=== PATIENT | female | born 1945 | race Caucasian/White ===

== ENCOUNTER 2017-02-16 09:24 | Outpatient (CLI) | payer MEDICARE ==
[2017-02-16 19:34] LABS: ALT (SGPT) 9 U/L (0-55); AST (SGOT) 14 U/L (5-34); Albumin 2.9 g/dL (3.4-4.8); Alkaline Phosphatase 173 U/L (40-150); Anion Gap 18 mmol/L (10-20); BUN (Urea Nitrogen) 13 mg/dL (9.8-20.1); Bilirubin, Total 0.2 mg/dL (0.2-1.2); Calc. Creatinine Clearance 0 mL/min (70-130); Calcium 9.8 mg/dL (7.8-10.44); Carbon Dioxide 30 mmol/L (23-31); Cardiac Risk 2.4 (Less than 4.5); Chloride 92 mmol/L (98-107); Cholesterol 143 mg/dL (< 200 Desired); Estimated GFR-MDRD 79; Globulin 4.2 g/dL (2.4-3.5); Glucose 189 mg/dL (80-115); HDL Cholesterol 59 mg/dL (>60 Neg Risk); LDL Cholesterol, Calculated 65 mg/dL; Potassium 4.6 mmol/L (3.5-5.1); Protein, Total 7.1 g/dL (5.8-8.1); Sodium 135 mmol/L (136-145); Triglycerides 93 mg/dL (Less than 150)
[2017-02-16 20:52] LABS: #Basophils 0.1 thou/uL (0.0-0.2); #Lymphocytes 0.8 thou/uL (1.20-3.40); #Monocytes 0.2 thou/uL (0.11-0.59); #Neutrophils 11.1 thou/uL (1.40-6.50); %Basophils 0.6 % (0.0-1.0); %Eosinophils 0.1 % (0.0-10.0); %Lymphocytes 6.9 % (21.0-51.0); %Monocytes 1.8 % (0.0-10.0); %Neutrophils 90.7 % (42.0-75.0); Hemoglobin 11.9 g/dL (12.0-16.0); Hypochromia SLIGHT = 6-15 cells (100X) (0-5/hpf); MDiff Complete? YES; Mean Corpuscular Hemoglobin 24.9 pg (27.0-31.0); Mean Platelet Volume 5.6 fL (7.4-10.4); PLT Morphology Comment Appears Increased; Platelet Count 828 thou/uL (130-400); Poikilocytosis SLIGHT = 6-15 cells (100X) (0-5/hpf); RBC Distribution Width 17.6 % (11.5-14.5); White Blood Cell (WBC) Count 12.3 thou/uL (4.8-10.8)
[2017-02-18 13:50] LABS: Hemoglobin A1c 4.6 % (4.0-6.0)
== END 2017-02-16 09:25 | disposition home or self-care (01) ==
LOC: LABLEX 09:24
PROVIDERS: ATTEND Family Medicine
DX: N83.9 Noninflammatory disorder of ovary, fallopian tube and broad ligament, unspecified (principal); R10.30 Lower abdominal pain, unspecified; B37.0 Candidal stomatitis; R53.81 Other malaise; L89.150 Pressure ulcer of sacral region, unstageable
CPT/HCPCS: 80053; 80061; 83036; 84443; 85025

== ENCOUNTER 2017-02-17 14:51 | Outpatient (CLI) | payer MEDICARE | END 2017-02-17 14:52 | disposition home or self-care (01) | LOC: LABLEX 14:51 | PROVIDERS: ATTEND Family Medicine | DX: R82.90 Unspecified abnormal findings in urine (principal) | CPT/HCPCS: 87086 ==

== ENCOUNTER 2017-02-25 14:40 | Inpatient (IN) | payer MEDICARE ==
[2017-02-25 15:34] LABS: #Basophils 0.1 thou/uL (0.0-0.2); #Eosinphils 0.1 thou/uL (0.0-0.7); #Monocytes 0.9 thou/uL (0.11-0.59); #Neutrophils 15.9 thou/uL (1.40-6.50); %Basophils 0.7 % (0.0-1.0); %Eosinophils 0.4 % (0.0-10.0); %Lymphocytes 10.4 % (21.0-51.0); %Monocytes 4.6 % (0.0-10.0); Anisocytosis SLIGHT = 6-15 cells (100X) (0-5/hpf); Band 1 % (5-11); Elliptocytes SLIGHT = 2-5 cells (100X) (0-1/hpf); Hemoglobin 12.2 g/dL (12.0-16.0); Hypochromia SLIGHT = 6-15 cells (100X) (0-5/hpf); Lymphocytes 15 % (21-51); MDiff Complete? YES; Mean Corpuscular HGB CONC 30.4 g/dL (32.0-36.0); Mean Corpuscular Hemoglobin 24.3 pg (27.0-31.0); Mean Platelet Volume 5.9 fL (7.4-10.4); Microcytosis SLIGHT = 6-15 cells (100X) (0-5/hpf); Monocytes 2 % (0-10); Neutrophil 82 % (42-75); PLT Morphology Comment PLATELETS INCREASED ON SLIDE; Platelet Count 766 thou/uL (130-400); Poikilocytosis SLIGHT = 6-15 cells (100X) (0-5/hpf); RBC Distribution Width 17.3 % (11.5-14.5); Red Blood Cell (RBC) Count 4.99 mill/uL (4.20-5.40); Stomatocytes SLIGHT = 2-5 cells (100X) (0-1/hpf); Target Cells SLIGHT = 2-5 cells (100X) (0-1/hpf); Tear Drops SLIGHT = 2-5 cells (100X) (0-1/hpf)
[2017-02-25 15:35] LABS: CKMB 1.6 ng/mL (0-6.6); Troponin I Less than 0.010 ng/mL (< 0.028)
[2017-02-25 15:39] LABS: ALT (SGPT) 6 U/L (0-55); AST (SGOT) 17 U/L (5-34); Albumin 2.8 g/dL (3.4-4.8); Alkaline Phosphatase 194 U/L (40-150); Anion Gap 17 mmol/L (10-20); BUN (Urea Nitrogen) 12 mg/dL (9.8-20.1); Bilirubin, Total 0.3 mg/dL (0.2-1.2); CK (CPK) 16 U/L (29-168); Calc. Creatinine Clearance 0 mL/min (70-130); Carbon Dioxide 31 mmol/L (23-31); Chloride 90 mmol/L (98-107); Estimated GFR-MDRD Greater than 90; Globulin 4.6 g/dL (2.4-3.5); Glucose 119 mg/dL (80-115); Lipase 34 U/L (8-78); Protein, Total 7.4 g/dL (5.8-8.1); Sodium 135 mmol/L (136-145)
[2017-02-25 15:42] LABS: Potassium 2.9 mmol/L (3.5-5.1)
[2017-02-25] MEDS ORDERED: Potassium Chloride 20 MEQ/100 ML PREMIX BAG ONE (15:52)
[2017-02-25 16:29] LABS: Blood, Urine Small (Negative); Glucose, Urine (Dipstick) Negative (Negative); Leukocyte Trace (Negative); Nitrite Negative (Negative); Protein, Urine (Dipstick) Negative (Neg-Trace); Urobilinogen 0.2 mg/dL (0.2-1.0)
[2017-02-25 16:31] LABS: Bilirubin Negative (Negative)
[2017-02-25 16:32] LABS: Bacteria/HPF Rare-Few HPF (None Seen); Clarity Hazy (Clear); Crystals/HPF 2+ AMORPH PHOS HPF (Negative); Other Microscopic Description C&S SET UP
[2017-02-25] MEDS: Potassium Chloride 20 MEQ in Premix Bag 1 BAG IVPB SCH ×2 (17:40→20:56)
[2017-02-25] MEDS ORDERED: Sodium Chloride 0.9% 1,000 ML IV SCH (19:30)
[2017-02-25] MEDS ORDERED: HYDROcodone/Acetaminophen 10/325 mg Tablet PO PRN (20:07)
[2017-02-25] MEDS ORDERED: Bisacodyl 10 MG SUPP PR PRN ×2 (20:07→20:10)
[2017-02-25] MEDS ORDERED: Milk Of Magnesia 30 ML UDCUP PO PRN (20:07)
[2017-02-25] MEDS ORDERED: Acetaminophen 325 MG TAB PO PRN (20:07)
[2017-02-25] MEDS ORDERED: Ventolin HFA Inhaler 60 PUFF INHALER INH PRN (20:10)
[2017-02-25] MEDS ORDERED: traMADol HCl 50 MG TAB PO PRN (20:10)
--- NOTE | 2017-02-25 20:15 | CT ---
CT OF THE ABDOMEN AND PELVIS: 02/25/17 Comparison is made with a 02/19/14 study. Axial slices were acquired after giving IV contrast. Coronal reconstructions were then done. The lung bases are clear. The liver again shows multiple dilated intrahepatic ducts. The common bile duct is dilated all the way down to its termination. The degree of ductal dilatation has not worsen ed since the prior CT dated 02/19/14. Currently, the diameter of the common duct in the pancreatic he ad was about 12 mm which is slightly less than before. There was no evidence of pancreatic mass. The spleen, adrenal glands, and kidneys showed no acute findings. There is some thickening of the left adrenal gland such that I cannot exclude a small mass here, but the appearance is not substantially different than the 2014 scan done at [facility]. The aorta is normal in caliber though has calcification in it. A small hiatal hernia was noted. The bowel shows a large amount of fecal material in the colon with some dilation of the colon, though I do not feel it is frankly obstructed. No inflammatory changes a re seen around the colon. Some nondilated fluid filled loops of small bowel were evident. CT of the pelvis shows a 3.3 cm cystic structure in the right adnexa. This was present before and bland s not changed significantly over time. No solid pelvic masses or fluid collections were appreciated. IMPRESSION: 1. Constipation. 2. Intra and extrahepatic bile duct dilation with no particular change in the appearance since 2013. 3. Hiatal hernia. 4. 3+ cm right ovarian cyst, little different than the prior study. POS: HOME
--- NOTE | 2017-02-25 20:22 | RAD ---
PORTABLE CHEST 02/25/17 An AP portable film at 1610 is compared with a 12/16/10 study. COPD is evident with hyperinflation of the lungs. No focal pulmonary infiltrates were noted. No mass es were seen. The cardiac size is normal. Calcification is seen in the aortic arch. IMPRESSION: No acute thoracic findings. POS: HOME
[2017-02-25] MEDS: HYDROcodone/Acetaminophen 10/325 mg Tablet PO PRN (20:48)
[2017-02-25] MEDS: Nicotine 21 MG PATCH TD SCH (20:53)
[2017-02-25] MEDS: Gabapentin 300 MG CAP PO SCH (20:53)
[2017-02-25] MEDS: Polyethylene Glycol 3350 17 GM Packet PO SCH (20:58)
[2017-02-25] MEDS: Sodium Chloride 0.9% 1,000 ML IV SCH ×2 (21:00→23:40)
[2017-02-25] MEDS: Zolpidem Tartrate 5 MG TAB PO SCH (22:10)
--- NOTE | 2017-02-26 02:37 | HP ---
DATE OF ADMISSION: 02/25/2017 CHIEF COMPLAINT: Abdominal pain with weight loss. HISTORY OF PRESENT ILLNESS: Patient is a 71-year-old white female, who reports a 6-week history of approximately 20-pound weight loss with diffuse abdominal pain, anorexia, and easy satiety. Patient stated she has had similar symptoms for greater than 6 months, reports being admitted twice in the last year for similar symptoms at [facility] in [place] as well as hospital in [place]. Ramon zarco says that she was dehydrated and given IV fluids, but does not know of any other diagnostic te sts that were performed and says that she was sent home and continued to be weak and debilitated ove r the last 6 weeks with her worsening symptoms, she has become so weak. She is having difficulty wa lking. She presented to the emergency room today at the recommendation of her primary care physicia n, Dr. Thrasher because of her worsening symptoms and inability to ambulate secondary to her weaknes s. She denies any hematochezia, no melena. She denies any emesis, but does have easy in early sati ety and is having trouble eating for significant oral intake. She does have a history of esophageal stricture. 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 She said at that time, there was no significant pathology found other than her esophageal stricture. Patient reports the last couple of days, she states that she feels weak and dizzy, but has had no syncope, no near syncopal spells. She has had no chest pain or shortness of breath. Patient is a c hronic smoker. PAST MEDICAL HISTORY: 1. COPD. 2. Chronic back pain, followed by Dr. Villalta on chronic narcotics. 3. History of bipolar disorder. 4. History of anemia with an upper GI ulcer requiring blood transfusion several years ago. 5. Psoriasis. 6. Ventral hernias, multiple. 7. Fibromyalgia. 8. Chronic back pain as above. 9. Peripheral neuropathy. 10. History of pneumonia in 2010 and a sternal fracture in 2010. 11. History of insomnia. 12. History of dyslipidemia. PAST SURGICAL HISTORY: Hernia repair, ventral x4, cholecystectomy and a right hip surgery in 2010. CURRENT MEDICATIONS: Patient reports taking trazodone 150 mg p.o. at bedtime, zolpidem 10 mg p.o. a t bedtime, tramadol 50 mg 1-2 tablets p.o. q. 6 hours p.r.n. pain, [place] 10/325 p.o. q. 6 hours p.r. n. pain, gabapentin 600 mg p.o. b.i.d., albuterol inhaler 1-2 puffs q. 4 hours p.r.n. shortness of b reath. ALLERGIES: Patient has allergies to PENICILLIN, NSAIDs, LYRICA, causing tongue swelling, TAPE and A DHESIVES and ENBREL. FAMILY HISTORY: Positive for father at age 75 from an NE. Mother at age 80 from lung cancer and has a sister, who had lung cancer as well. SOCIAL HISTORY: Patient reports a greater than 40-year pack history of smoking. She is retired. D enies any alcohol use and she is . REVIEW OF SYSTEMS: Patient denies any recent visual changes. No sore throat reported. She does re port that GI symptoms as in HPI. She also reports a history of constipation for which she takes lax atives on a p.r.n. basis. No melena, no hematochezia reported. Patient denies any diarrhea. She d oes report early satiety. She denies any increased cough nor shortness of breath worsen baseline. No chest pain or palpitations reported. Patient reports some increased urinary frequency intermitte ntly, but no dysuria. She had a history of hematuria evaluated several years ago with a cystoscopy, which was negative for malignancy. Patient denies any lower extremity swelling. She has chronic p eripheral neuropathy in her feet which is controlled with gabapentin. Patient denies any recent wor sening depression other than the pain that she is having her abdomen, worse after eating. Patient r eports chronic back pain which is at its baseline. PHYSICAL EXAMINATION: GENERAL: Cachectic ill-appearing white female, appears older than stated age, alert and oriented x3 . VITAL SIGNS: Patient's blood pressure was 107/53, temperature 97.2, pulse was 90 beats per minute, respiratory rate was 20, O2 sat was 97% on room air. HEENT: Oropharynx, mucous membranes are slightly dry. No lesions were noted. Extraocular movement s are intact. NECK: Supple, no masses palpated. CHEST: Prolonged expiration without rales or wheezes. HEART: Rapid but regular rate and rhythm. ABDOMEN: Scaphoid. There was some diffuse abdominal tenderness in the upper epigastrium as well as the bilateral upper quadrant areas without rebound or guarding. Bowel sounds were hypoactive, but present in all 4 quadrants. No masses were palpated other than what appeared to be a possible mesh on her upper abdominal area from previous gastric surgery. EXTREMITIES: Showed thin extremities. BACK: Had no significant vertebral tenderness. No CVA tenderness. She had a small stage I areas o f skin breakdown in the lower sacrum area without signs of secondary infection. LABORATORY AND X-RAY FINDINGS: CBC had a white count of 19,000 with a platelet count 766,000, H\T\H of 12.2 and 40.0. Chemistry showed a sodium of 135, potassium of 2.9 and glucose of 119 nonfasting , alkaline phosphatase 194. Cardiac enzymes were normal. TSH was 2.0. Urinalysis showed 4-6 wbc's and 4-6 squamous cells with rare bacteria. Chest x-ray showed chronic emphysematous changes. CT s can reported by the emergency room physician showed no acute findings. ASSESSMENT AND PLAN: 1. Recent weight loss with abdominal pain, anorexia, etiology is unknown at this time. We will try to advance patient's diet includes high calorie shakes, may discuss this case with the patient's ga stroenterologist, Dr. Conner may need to have a repeat upper endoscopy and/or lower endoscopy if neede d. 2. Dehydration. We will rehydrate with IV fluids and oral as patient tolerates. 3. Hypokalemia. This may be diet related. Patient was given potassium supplements to IV. She ref used orals potassium because she said she could not tolerate it. 4. Chronic history of smoking. Patient is at risk for malignancy with her significant weight loss. Chest x-ray did not show any obvious findings that may consider further imaging as needed. She do es have a history of right ovarian cystic lesion. We will order pelvic ultrasound. 5. Deconditioning. Patient will be started physical therapy and occupational therapy. DISPOSITION: Patient's condition is very guarded with significant weight loss, anorexia, unknown ca use of the patient's overall worsening status. Hopefully, she will improve to the point where she c an ambulate again and be discharged to home.
[2017-02-26] MEDS: HYDROcodone/Acetaminophen 10/325 mg Tablet PO PRN ×3 (03:49→20:40)
[2017-02-26 06:45] LABS: ALT (SGPT) 6 U/L (0-55); AST (SGOT) 13 U/L (5-34); Albumin 2.4 g/dL (3.4-4.8); Alkaline Phosphatase 158 U/L (40-150); Anion Gap 12 mmol/L (10-20); BUN (Urea Nitrogen) 10 mg/dL (9.8-20.1); Bilirubin, Total 0.1 mg/dL (0.2-1.2); Calc. Creatinine Clearance 0 mL/min (70-130); Calcium 8.3 mg/dL (7.8-10.44); Carbon Dioxide 30 mmol/L (23-31); Chloride 98 mmol/L (98-107); Estimated GFR-MDRD Greater than 90; Globulin 3.8 g/dL (2.4-3.5); Glucose 81 mg/dL (80-115); Potassium 3.3 mmol/L (3.5-5.1); Protein, Total 6.2 g/dL (5.8-8.1); Sodium 137 mmol/L (136-145)
[2017-02-26 06:57] LABS: #Basophils 0.1 thou/uL (0.0-0.2); #Eosinphils 0.1 thou/uL (0.0-0.7); #Monocytes 0.8 thou/uL (0.11-0.59); #Neutrophils 10.2 thou/uL (1.40-6.50); %Basophils 0.6 % (0.0-1.0); %Eosinophils 1.1 % (0.0-10.0); %Lymphocytes 7.8 % (21.0-51.0); %Monocytes 6.2 % (0.0-10.0); %Neutrophils 84.3 % (42.0-75.0); Hemoglobin 10.6 g/dL (12.0-16.0); Mean Corpuscular HGB CONC 31.8 g/dL (32.0-36.0); Mean Corpuscular Hemoglobin 25.3 pg (27.0-31.0); Mean Corpuscular Volume 79.5 fl (81.0-99.0); Mean Platelet Volume 5.8 fL (7.4-10.4); Platelet Count 585 thou/uL (130-400); RBC Distribution Width 17.2 % (11.5-14.5); Red Blood Cell (RBC) Count 4.19 mill/uL (4.20-5.40); White Blood Cell (WBC) Count 12.1 thou/uL (4.8-10.8)
[2017-02-26] MEDS: Polyethylene Glycol 3350 17 GM Packet PO SCH ×2 (08:44→20:41)
[2017-02-26] MEDS: Gabapentin 300 MG CAP PO SCH ×2 (08:45→20:40)
[2017-02-26] MEDS: traMADol HCl 50 MG TAB PO PRN ×2 (08:45→18:09)
[2017-02-26] MEDS ORDERED: Iopamidol 370 76% 100 ML VIAL ONE (09:00)
[2017-02-26 10:01] VITALS: BMI 12.4
[2017-02-26] MEDS: Sodium Chloride 0.9% 1,000 ML IV SCH (11:51)
[2017-02-26 16:52] LABS: Reticulocyte Count 0.8 % (0.5-1.5)
[2017-02-26 16:58] LABS: Iron 10 ug/dL (50-170); Iron Binding Capacity, Total 141 mcg/dL (265-497)
[2017-02-26 17:50] LABS: Folate (Folic Acid) 11.7 ng/mL (7.0-31.4)
[2017-02-26] MEDS: Nicotine 21 MG PATCH TD SCH (20:39)
[2017-02-26] MEDS: Zolpidem Tartrate 5 MG TAB PO SCH (20:40)
--- NOTE | 2017-02-26 20:46 | ULT ---
PELVIC ULTRASOUND: Date: 02/26/17 Ultrasonography of the pelvis was performed for evaluation of a right ovarian mass. This was prompte d by a recent CT showing a cystic area in the right ovary. There was a CT prior to this that also sh owed the finding. It appeared to have changed little in size over time. FINDINGS: The uterus is atrophic and seen poorly. It measures 5.1 x 2.8 x 3.9 cm. The endometrium was not defi nable, but is certainly not thick. The right ovary is 4.3 cm long and contains a cyst within it that measures 2.3 x 3.6 x 2.[address] as I can tell, it seems purely cystic. The left ovary appeared normal and was 2.0 cm long. No veronica e fluid was seen in the cul-de-sac. There appears to be some debris within the urinary bladder. The significance of the finding is unkno wn. IMPRESSION: 1. 3.6 cm right ovarian cyst with no obvious solid tissue components or septa. 2. Several echoes of debris seen in the urinary bladder of uncertain significance. A urinalysis sadi ht be useful to check. CODE T. POS: HOME
[2017-02-27] MEDS: Sodium Chloride 0.9% 1,000 ML IV SCH ×2 (01:40→15:25)
[2017-02-27] MEDS: traMADol HCl 50 MG TAB PO PRN ×2 (07:22→17:01)
[2017-02-27] MEDS: Polyethylene Glycol 3350 17 GM Packet PO SCH ×3 (08:30→20:03)
[2017-02-27] MEDS: Gabapentin 300 MG CAP PO SCH ×2 (08:49→20:00)
[2017-02-27] MEDS: HYDROcodone/Acetaminophen 10/325 mg Tablet PO PRN ×2 (10:57→19:57)
[2017-02-27] MEDS: Nicotine 21 MG PATCH TD SCH (20:00)
[2017-02-27] MEDS: Zolpidem Tartrate 5 MG TAB PO SCH (21:49)
[2017-02-28] MEDS: HYDROcodone/Acetaminophen 10/325 mg Tablet PO PRN ×2 (03:40→09:50)
[2017-02-28] MEDS: Sodium Chloride 0.9% 1,000 ML IV SCH ×2 (04:06→13:12)
[2017-02-28 06:19] LABS: #Basophils 0.1 thou/uL (0.0-0.2); #Eosinphils 0.1 thou/uL (0.0-0.7); #Lymphocytes 1.4 thou/uL (1.20-3.40); #Monocytes 0.6 thou/uL (0.11-0.59); #Neutrophils 9.3 thou/uL (1.40-6.50); %Basophils 0.7 % (0.0-1.0); %Eosinophils 0.8 % (0.0-10.0); %Lymphocytes 12.2 % (21.0-51.0); %Monocytes 5.1 % (0.0-10.0); %Neutrophils 81.3 % (42.0-75.0); Anisocytosis SLIGHT = 6-15 cells (100X) (0-5/hpf); Elliptocytes SLIGHT = 2-5 cells (100X) (0-1/hpf); Hemoglobin 9.7 g/dL (12.0-16.0); Hypochromia SLIGHT = 6-15 cells (100X) (0-5/hpf); MDiff Complete? YES; Mean Corpuscular HGB CONC 31.2 g/dL (32.0-36.0); Mean Corpuscular Hemoglobin 24.7 pg (27.0-31.0); Mean Platelet Volume 5.7 fL (7.4-10.4); Microcytosis SLIGHT = 6-15 cells (100X) (0-5/hpf); Platelet Count 451 thou/uL (130-400); Poikilocytosis SLIGHT = 6-15 cells (100X) (0-5/hpf); RBC Distribution Width 17.1 % (11.5-14.5); Red Blood Cell (RBC) Count 3.91 mill/uL (4.20-5.40); Stomatocytes SLIGHT = 2-5 cells (100X) (0-1/hpf); Tear Drops SLIGHT = 2-5 cells (100X) (0-1/hpf); White Blood Cell (WBC) Count 11.4 thou/uL (4.8-10.8)
[2017-02-28 06:26] VITALS: BP 105/52; TEMP 98.2
[2017-02-28 06:26] LABS: ALT (SGPT) 6 U/L (0-55); AST (SGOT) 13 U/L (5-34); Albumin 2.1 g/dL (3.4-4.8); Alkaline Phosphatase 134 U/L (40-150); Anion Gap 9 mmol/L (10-20); BUN (Urea Nitrogen) 7 mg/dL (9.8-20.1); Bilirubin, Total 0.1 mg/dL (0.2-1.2); Calc. Creatinine Clearance 62 mL/min (70-130); Calcium 7.3 mg/dL (7.8-10.44); Carbon Dioxide 29 mmol/L (23-31); Chloride 101 mmol/L (98-107); Estimated GFR-MDRD Greater than 90; Globulin 3.2 g/dL (2.4-3.5); Glucose 92 mg/dL (80-115); Protein, Total 5.3 g/dL (5.8-8.1); Sodium 136 mmol/L (136-145)
[2017-02-28 06:29] LABS: Potassium 2.5 mmol/L (3.5-5.1)
[2017-02-28] MEDS ORDERED: ADMIXTURE FEE IVPB SCH (07:00)
[2017-02-28] MEDS ORDERED: POTASSIUM CHLORIDE IVPB SCH (07:00)
[2017-02-28] MEDS ORDERED: Potassium Chloride 20 MEQ TAB PO SCH (07:00)
[2017-02-28] MEDS: Polyethylene Glycol 3350 17 GM Packet PO SCH (08:25)
[2017-02-28] MEDS: Gabapentin 300 MG CAP PO SCH (08:26)
--- NOTE | 2017-03-02 14:32 | PQF ---
LYUBOV DAVID KIA E MD [id number] CLINICAL DOCUMENTATION CLARIFICATION FORM: POST DISCHARGE PLEASE FAX RESPONSE BACK TO [phone] Addendum to original discharge summary date: ____ Late entry note date: __ IF QUERY RECEIVED VIA FAX........ PLEASE DOCUMENT YOUR RESPONSE BELOW FAX RESPONSE BACK TO [phone] Query date: 03/02/17 Values Commonly Used to Grade the Severity of Protein-Energy Malnutrition Measurement Normal Mild Moderate Severe Normal weight (%) 62739 8590 7585 < 77 Body mass index 1924 1818.9 1617.9 < 16 Serum albumin (g/dL) 3.55.0 3.13.4 2.43.0 < 2.4 Serum transferrin (mg/dL) 340180 488447 713529 < 150 Total lymphocyte count (per mm3) [id number] 800 1500 < 800 Delayed hypersensitivity index 2 2 1 0 The following information is documented in the medical record: Weight loss Cachectic BMI 12.5 (<18.5 Mild, <17 Moderate, <16 Severe) Albumin 2.8(g/dL) (</= 3.0 Mild, </= 2.5 Moderate, 2.0 Severe) Anorexia Please document the diagnosis that best represents the patients condition, to the most specific degree known or suspected. _x__ Cachexia ___ Malnutrition , mild ___ Nutritional Risk ___ Malnutrition, moderate ___ Malnutrition, severe, not otherwise specified ___ Other: ___ Condition not applicable ___ No additional documentation or clarification can be provided. Physician/Provider signature/date/time (This form is maintained as a part of the permanent medical record) 2014 [employer], [employer]. All Rights Reserved [email or web address]
== END 2017-02-28 16:36 | disposition home health service (06) | DRG 641 ==
LOC: BURERS 14:40 → BURMED 16:33
PROVIDERS: ADMIT Family Medicine; ATTEND Family Medicine
DX: E87.6 Hypokalemia (principal); E86.0 Dehydration; R64 Cachexia; Z68.1 Body mass index [BMI] 19.9 or less, adult; J44.9 Chronic obstructive pulmonary disease, unspecified; M54.9 Dorsalgia, unspecified; F31.9 Bipolar disorder, unspecified; L40.9 Psoriasis, unspecified; M79.7 Fibromyalgia; G62.9 Polyneuropathy, unspecified; E78.5 Hyperlipidemia, unspecified; G47.00 Insomnia, unspecified; Z88.0 Allergy status to penicillin; Z88.8 Allergy status to other drugs, medicaments and biological substances; Z91.048 Other nonmedicinal substance allergy status; F17.210 Nicotine dependence, cigarettes, uncomplicated; K59.00 Constipation, unspecified; R63.0 Anorexia; R10.9 Unspecified abdominal pain
CPT/HCPCS: 36415; 71010; 74177; 76856; 80053; 81003; 81015; 82274; 82550; 82553; 82607; 82728; 82746; 83540; 83550; 83690; 84443; 84484; 85025; 85046; 87086; 93005; 96365; G8987-GO-CM; G8988-GO-CJ; J3480

== ENCOUNTER 2017-02-28 16:33 | Inpatient (IN) | payer MEDICARE ==
[2017-02-28] MEDS ORDERED: Bisacodyl 10 MG SUPP PR PRN ×2 (17:07)
[2017-02-28] MEDS ORDERED: Acetaminophen 325 MG TAB PO PRN (17:07)
[2017-02-28] MEDS ORDERED: Milk Of Magnesia 30 ML UDCUP PO PRN (17:11)
[2017-02-28] MEDS ORDERED: Ventolin HFA Inhaler 60 PUFF INHALER INH PRN (17:11)
[2017-02-28] MEDS: NS 0.9% w/ 20 MEQ KCL 1,000 ML IV SCH (17:38)
[2017-02-28] MEDS: HYDROcodone/Acetaminophen 10/325 mg Tablet PO PRN (17:48)
[2017-02-28] MEDS: Gabapentin 300 MG CAP PO SCH (20:14)
[2017-02-28] MEDS: Senokot S 8.6-50 MG TAB PO SCH (20:14)
[2017-02-28] MEDS: Nicotine 21 MG PATCH TD SCH (20:14)
[2017-02-28] MEDS: Polyethylene Glycol 3350 17 GM Packet PO SCH (20:15)
[2017-02-28] MEDS: traMADol HCl 50 MG TAB PO PRN (20:16)
[2017-02-28] MEDS: Zolpidem Tartrate 5 MG TAB PO SCH (22:07)
[2017-03-01] MEDS: HYDROcodone/Acetaminophen 10/325 mg Tablet PO PRN ×3 (01:50→20:11)
[2017-03-01] MEDS: NS 0.9% w/ 20 MEQ KCL 1,000 ML IV SCH ×2 (05:47→18:34)
[2017-03-01] MEDS: traMADol HCl 50 MG TAB PO PRN (09:08)
[2017-03-01] MEDS: Gabapentin 300 MG CAP PO SCH ×2 (09:09→20:09)
[2017-03-01] MEDS: Senokot S 8.6-50 MG TAB PO SCH ×2 (09:10→20:10)
[2017-03-01] MEDS: Polyethylene Glycol 3350 17 GM Packet PO SCH ×2 (09:10→20:13)
[2017-03-01 09:25] VITALS: BMI 13.6
[2017-03-01 10:03] LABS: ALT (SGPT) 7 U/L (0-55); AST (SGOT) 15 U/L (5-34); Albumin 2.2 g/dL (3.4-4.8); Alkaline Phosphatase 144 U/L (40-150); Anion Gap 10 mmol/L (10-20); BUN (Urea Nitrogen) 6 mg/dL (9.8-20.1); Bilirubin, Total 0.1 mg/dL (0.2-1.2); Calc. Creatinine Clearance 65 mL/min (70-130); Calcium 7.4 mg/dL (7.8-10.44); Carbon Dioxide 28 mmol/L (23-31); Chloride 102 mmol/L (98-107); Estimated GFR-MDRD Greater than 90; Globulin 3.5 g/dL (2.4-3.5); Glucose 93 mg/dL (80-115); Protein, Total 5.7 g/dL (5.8-8.1); Sodium 137 mmol/L (136-145)
[2017-03-01 11:17] LABS: Potassium 2.8 mmol/L (3.5-5.1)
[2017-03-01] MEDS: Zolpidem Tartrate 5 MG TAB PO SCH (20:10)
[2017-03-01] MEDS: Nicotine 21 MG PATCH TD SCH (20:28)
--- NOTE | 2017-03-01 21:49 | RAD ---
ACUTE ABDOMEN SERIES: Date: 03-01-17 Comparison: 02-25-17 CT exam. FINDINGS: The gas pattern is nonspecific with no findings strongly suggestive of obstruction. There continues to be a very large amount of fecal material in the colon. No important calcifications were seen exce pt for vascular calcifications. Clips are noted in the right upper quadrant from a prior operative p rocedure as well as around the fundus of the stomach. There is an air fluid level in the stomach, th ough it is not tremendously distended. The chest film in the series is also comparted with a 02-25-17 study. The heart is normal in size. Th e lungs are hyperexpanded but clear. No effusions were noted. IMPRESSION: Constipation. POS: HOME
[2017-03-02] MEDS: HYDROcodone/Acetaminophen 10/325 mg Tablet PO PRN ×3 (07:20→19:10)
[2017-03-02] MEDS: Gabapentin 300 MG CAP PO SCH ×2 (08:07→20:17)
[2017-03-02] MEDS: Senokot S 8.6-50 MG TAB PO SCH ×2 (08:07→20:18)
[2017-03-02] MEDS: Polyethylene Glycol 3350 17 GM Packet PO SCH ×3 (08:07→20:18)
[2017-03-02] MEDS: NS 0.9% w/ 20 MEQ KCL 1,000 ML IV SCH (09:23)
[2017-03-02] MEDS: traMADol HCl 50 MG TAB PO PRN ×2 (10:25→22:54)
[2017-03-02] MEDS ORDERED: Bisacodyl 10 MG SUPP PR PRN (11:50)
[2017-03-02] MEDS: Potassium Chloride 20 MEQ TAB PO SCH ×2 (17:34→20:39)
[2017-03-02] MEDS ORDERED: Sodium Chloride 0.9% 10 ML ONE (20:04)
[2017-03-02] MEDS: Nicotine 21 MG PATCH TD SCH (20:20)
[2017-03-02] MEDS: Zolpidem Tartrate 5 MG TAB PO SCH (22:45)
[2017-03-03] MEDS: HYDROcodone/Acetaminophen 10/325 mg Tablet PO PRN ×2 (04:22→16:20)
[2017-03-03 06:03] LABS: Anion Gap 10 mmol/L (10-20); Calc. Creatinine Clearance 60 mL/min (70-130); Calcium 7.4 mg/dL (7.8-10.44); Carbon Dioxide 33 mmol/L (23-31); Chloride 100 mmol/L (98-107); Estimated GFR-MDRD Greater than 90; Glucose 83 mg/dL (80-115); Potassium 3.5 mmol/L (3.5-5.1); Sodium 139 mmol/L (136-145)
[2017-03-03 06:11] LABS: BUN (Urea Nitrogen) 6 mg/dL (9.8-20.1)
[2017-03-03] MEDS: traMADol HCl 50 MG TAB PO PRN ×2 (09:22→20:38)
[2017-03-03] MEDS: Gabapentin 300 MG CAP PO SCH ×2 (16:13→20:32)
[2017-03-03] MEDS: Senokot S 8.6-50 MG TAB PO SCH ×2 (16:14→20:33)
[2017-03-03] MEDS: Polyethylene Glycol 3350 17 GM Packet PO SCH ×2 (16:15→20:33)
[2017-03-03] MEDS: Nicotine 21 MG PATCH TD SCH (20:32)
[2017-03-03] MEDS: Zolpidem Tartrate 5 MG TAB PO SCH (21:57)
[2017-03-04] MEDS: HYDROcodone/Acetaminophen 10/325 mg Tablet PO PRN ×4 (00:06→23:04)
[2017-03-04] MEDS: Gabapentin 300 MG CAP PO SCH ×2 (09:13→20:57)
[2017-03-04] MEDS: Senokot S 8.6-50 MG TAB PO SCH ×2 (09:14→20:58)
[2017-03-04] MEDS: Polyethylene Glycol 3350 17 GM Packet PO SCH ×2 (09:14→21:00)
[2017-03-04] MEDS: traMADol HCl 50 MG TAB PO PRN (14:30)
[2017-03-04] MEDS: Zolpidem Tartrate 5 MG TAB PO SCH (20:58)
[2017-03-04] MEDS: Nicotine 21 MG PATCH TD SCH (20:59)
[2017-03-05] MEDS: traMADol HCl 50 MG TAB PO PRN ×2 (02:47→08:52)
[2017-03-05] MEDS: HYDROcodone/Acetaminophen 10/325 mg Tablet PO PRN ×3 (05:29→20:45)
[2017-03-05 05:36] LABS: ALT (SGPT) 8 U/L (8-55); AST (SGOT) 16 U/L (5-34); Alkaline Phosphatase 120 U/L (40-150); Anion Gap 11 mmol/L (10-20); BUN (Urea Nitrogen) 6 mg/dL (9.8-20.1); Calc. Creatinine Clearance 66 mL/min (70-130); Calcium 7.3 mg/dL (7.8-10.44); Carbon Dioxide 34 mmol/L (23-31); Chloride 94 mmol/L (98-107); Estimated GFR-MDRD Greater than 90; Globulin 3.3 g/dL (2.4-3.5); Glucose 98 mg/dL (80-115); Protein, Total 5.3 g/dL (5.8-8.1); Sodium 136 mmol/L (136-145)
[2017-03-05 05:42] LABS: Potassium 2.6 mmol/L (3.5-5.1)
[2017-03-05 05:45] LABS: Bilirubin, Total 0.1 mg/dL (0.2-1.2)
[2017-03-05] MEDS: Gabapentin 300 MG CAP PO SCH ×2 (08:45→20:43)
[2017-03-05] MEDS: Senokot S 8.6-50 MG TAB PO SCH ×2 (08:46→20:44)
[2017-03-05] MEDS: Polyethylene Glycol 3350 17 GM Packet PO SCH ×2 (08:46→20:45)
[2017-03-05] MEDS: Potassium Chloride 20 MEQ TAB PO SCH ×2 (08:46→20:44)
[2017-03-05] MEDS: Nicotine 21 MG PATCH TD SCH (20:44)
[2017-03-05] MEDS: Zolpidem Tartrate 5 MG TAB PO SCH (20:44)
[2017-03-06] MEDS: HYDROcodone/Acetaminophen 10/325 mg Tablet PO PRN ×3 (05:18→21:25)
[2017-03-06] MEDS: Gabapentin 300 MG CAP PO SCH ×2 (08:36→21:25)
[2017-03-06] MEDS: Potassium Chloride 20 MEQ TAB PO SCH ×2 (08:36→21:23)
[2017-03-06] MEDS: Senokot S 8.6-50 MG TAB PO SCH ×2 (08:36→21:23)
[2017-03-06] MEDS: Polyethylene Glycol 3350 17 GM Packet PO SCH ×2 (08:37→21:27)
[2017-03-06] MEDS: traMADol HCl 50 MG TAB PO PRN (17:30)
[2017-03-06] MEDS: Nicotine 21 MG PATCH TD SCH (21:25)
[2017-03-06] MEDS: Zolpidem Tartrate 5 MG TAB PO SCH (21:26)
[2017-03-07] MEDS: Senokot S 8.6-50 MG TAB PO SCH ×2 (08:50→21:59)
[2017-03-07] MEDS: Potassium Chloride 20 MEQ TAB PO SCH ×2 (08:50→21:57)
[2017-03-07] MEDS: Gabapentin 300 MG CAP PO SCH ×2 (08:50→21:58)
[2017-03-07] MEDS: Polyethylene Glycol 3350 17 GM Packet PO SCH ×2 (08:51→22:00)
[2017-03-07] MEDS: HYDROcodone/Acetaminophen 10/325 mg Tablet PO PRN ×2 (14:48→21:59)
[2017-03-07 16:16] LABS: Potassium 3.2 mmol/L (3.5-5.1)
[2017-03-07] MEDS: Zolpidem Tartrate 5 MG TAB PO SCH (21:58)
[2017-03-07] MEDS: Nicotine 21 MG PATCH TD SCH (22:00)
[2017-03-08 06:28] VITALS: BP 104/55; TEMP 98.6
[2017-03-08] MEDS: Senokot S 8.6-50 MG TAB PO SCH (09:30)
[2017-03-08] MEDS: Gabapentin 300 MG CAP PO SCH (09:30)
[2017-03-08] MEDS: Polyethylene Glycol 3350 17 GM Packet PO SCH (09:31)
[2017-03-08] MEDS: Potassium Chloride 20 MEQ TAB PO SCH (09:31)
[2017-03-08] MEDS: HYDROcodone/Acetaminophen 10/325 mg Tablet PO PRN (14:15)
== END 2017-03-08 14:45 | disposition left against medical advice (07) | DRG 948 ==
LOC: BURMED 16:36
PROVIDERS: ADMIT Family Medicine; ATTEND Family Medicine
DX: R53.1 Weakness (principal); J44.9 Chronic obstructive pulmonary disease, unspecified; G62.9 Polyneuropathy, unspecified; E86.0 Dehydration; E87.6 Hypokalemia; F17.210 Nicotine dependence, cigarettes, uncomplicated; F31.9 Bipolar disorder, unspecified; M79.7 Fibromyalgia; M54.9 Dorsalgia, unspecified
CPT/HCPCS: 36415; 74022; 80048; 80053; 82274; 84132; A4216; G8978-GP-CK; G8979-GP-CI; G8987-GO-CL; G8988-GO-CJ

== ENCOUNTER 2017-07-20 11:50 | Emergency (ER) | payer MEDICARE ==
[2017-07-20 12:34] LABS: #Lymphocytes 0.6 thou/uL (1.20-3.40); #Monocytes 0.3 thou/uL (0.11-0.59); #Neutrophils 12.6 thou/uL (1.40-6.50); %Basophils 0.2 % (0.0-1.0); %Lymphocytes 4.4 % (21.0-51.0); %Monocytes 2.5 % (0.0-10.0); Hemoglobin 10.2 g/dL (12.0-16.0); Mean Corpuscular HGB CONC 31.3 g/dL (32.0-36.0); Mean Corpuscular Hemoglobin 25.4 pg (27.0-31.0); Mean Corpuscular Volume 81.3 fl (81.0-99.0); Mean Platelet Volume 6.6 fL (7.4-10.4); Platelet Count 171 thou/uL (130-400); RBC Distribution Width 20.2 % (11.5-14.5); Red Blood Cell (RBC) Count 4.02 mill/uL (4.20-5.40); White Blood Cell (WBC) Count 13.6 thou/uL (4.8-10.8)
[2017-07-20 12:44] LABS: ALT (SGPT) 7 U/L (8-55); AST (SGOT) 14 U/L (5-34); Albumin 1.8 g/dL (3.4-4.8); Alkaline Phosphatase 153 U/L (40-150); Anion Gap 14 mmol/L (10-20); BUN (Urea Nitrogen) 7 mg/dL (9.8-20.1); Bilirubin, Total 0.3 mg/dL (0.2-1.2); Calc. Creatinine Clearance 0 mL/min (70-130); Calcium 8.2 mg/dL (7.8-10.44); Chloride 79 mmol/L (98-107); Estimated GFR-MDRD Greater than 90; Globulin 3.1 g/dL (2.4-3.5); Glucose 108 mg/dL (80-115); Protein, Total 4.9 g/dL (6.0-8.3); Sodium 133 mmol/L (136-145)
[2017-07-20 13:00] LABS: Anisocytosis MODERATE=16-30 cells (100X) (0-5/hpf); MDiff Complete? YES; PLT Morphology Comment Appears Adequate
[2017-07-20 13:01] LABS: Bilirubin Negative (Negative); Blood, Urine Trace (Negative); Clarity Slightly Cloudy (Clear); Glucose, Urine (Dipstick) Negative (Negative); Leukocyte Negative (Negative); Nitrite Negative (Negative); Protein, Urine (Dipstick) 30 mg/dL (Neg-Trace); Urobilinogen 0.2 mg/dL (0.2-1.0); pH, Urine 6.5 (5.0-9.0)
[2017-07-20 13:03] LABS: Carbon Dioxide 42 mmol/L (23-31); Lipase Less than 4 U/L (8-78); Potassium 1.4 mmol/L (3.5-5.1)
[2017-07-20 13:09] LABS: Bacteria/HPF 1+ HPF (None Seen); Squamous Epithelial 0-3 HPF (0-3)
[2017-07-20] MEDS ORDERED: Ondansetron HCl/PF 4 MG/2 ML Vial ONE (13:09)
[2017-07-20 13:12] LABS: INR-International Normal Ratio 1.5; Prothrombin Time 18.4 SEC (12.0-14.7)
[2017-07-20 13:13] LABS: PTT 42.5 SEC (22.9-36.1)
--- NOTE | 2017-07-20 20:10 | RAD ---
PORTABLE CHEST: 07/20/17 An AP portable film at 1207 is compared with a 02/25/17 study. The cardiac size is normal. There is no congestive change or large pleural effusion. A little hazine ss in the left base is most likely due to the patient being turned slightly. There is no definite in filtrate at this time. Calcific changes are seen in the aorta. IMPRESSION: No definite acute finding. POS: HOME
== END 2017-07-20 14:18 | disposition short-term general hospital (02) ==
LOC: BURERS 11:50
DX: A41.9 Sepsis, unspecified organism (principal); D64.9 Anemia, unspecified; D68.9 Coagulation defect, unspecified; R62.7 Adult failure to thrive; E87.6 Hypokalemia; J44.9 Chronic obstructive pulmonary disease, unspecified; M54.9 Dorsalgia, unspecified; G89.29 Other chronic pain; G62.9 Polyneuropathy, unspecified; F17.210 Nicotine dependence, cigarettes, uncomplicated; F32.9 Major depressive disorder, single episode, unspecified
CPT/HCPCS: 36415; 51701; 71010; 80053; 81003; 81015; 83605; 83690; 85025; 85610; 85730; 87040; 87086; 93005; 94760; 96361; 96365; 96368; 96375; A4353; J1956; J2405